=== PATIENT | female | born 1960 | race Hispanic/Latino ===

== ENCOUNTER 2022-03-27 19:32 | Emergency (ER) | payer OTHER ==
[~2022-03-27] VITALS: Ht 147.3 cm; Wt 59.0 kg
[~2022-03-27 19:32] MED LIST: CYCLOBENZAPRINE10 MG PO; DICLOFENAC POTA50 MG PO; DIOVAN HCT 1601 EAC1 PO; DIOVAN80 MG PO
[2022-03-27] MEDS ORDERED: HYDRALAZINE HCL 20 MG/ML VIAL IV STA (19:54)
[2022-03-27 20:02] LABS: BASOPHILS % 0.6 % (0.0-1.0); EOSINOPHILS # (AUTO) 0.2 (0.0-0.4); EOSINOPHILS % 2.2 % (0.0-6.0); HEMATOCRIT 39.3 % (34.2-44.1); HEMOGLOBIN 13.1 g/dL (12.0-16.0); LYMPHOCYTES # (AUTO) 2.2 (1.0-3.2); LYMPHOCYTES % 32.4 % (18.0-39.1); MEAN CORPUSCULAR HEMOGLOBIN 34.3 pg (28-32); MEAN CORPUSCULAR HGB CONC 33.3 g/dL (31-35); MEAN CORPUSCULAR VOLUME 102.9 fL (81-99); MONOCYTES # (AUTO) 0.5 (0.2-0.8); MONOCYTES % 7.4 % (4.4-11.3); NEUTROPHILS # (AUTO) 3.9 (2.1-6.9); NEUTROPHILS % 57.1 % (38.7-80.0); PLATELET COUNT 157 x10e3/uL (140-360); RED BLOOD COUNT 3.82 x10e6/uL (3.6-5.1); RED CELL DISTRIBUTION WIDTH 12.5 % (11.7-14.4)
[2022-03-27 20:23] LABS: ALBUMIN 4.1 g/dL (3.5-5.0); ALBUMIN/GLOBULIN RATIO 1.1 (0.8-2.0); ANION GAP 17.5 mmol/L (8-16); CALCIUM 9.7 mg/dL (8.4-10.2); CREATININE, SERUM 0.79 mg/dL (0.57-1.11); POTASSIUM 3.5 mmol/L (3.5-5.1)
[2022-03-27] MEDS ORDERED: Morphine 4mg INJECTION 4 MG/ML INJ IV ONE ×3 (21:30→23:45)
[2022-03-27] MEDS ORDERED: ONDANSETRON HCL INJ 2MG/ML 2ML 2 MG/ML VIAL IV STA ×2 (21:30→23:40)
[2022-03-27] MEDS ORDERED: ONDANSETRON HCL INJ 2MG/ML 2ML 2 MG/ML VIAL ONE ×2 (21:46→23:56)
[2022-03-27] MEDS ORDERED: Morphine 4mg INJECTION 4 MG/ML INJ ONE (21:46)
[2022-03-27] MEDS ORDERED: TIMOLOL MALEATE 0.5% OPTH DRP 5 ML BTL OS STA (23:33)
[2022-03-27] MEDS ORDERED: ACETAZOLAMIDE SODIUM 500 MG/VIAL IV ONE (23:45)
[2022-03-28] MEDS ORDERED: DORZOLAMIDE/TIMOLOL (OPTH SOL) 10 ML DRPETTE OP ONE ×3 (00:15→09:00)
[2022-03-28 01:03] VITALS: BP 139/73
[2022-03-28] MEDS ORDERED: ACETAZOLAMIDE250 MG PO ×2 (01:14→01:28)
[2022-03-28] MEDS ORDERED: ACETAMINOPHEN-1 EAC4 PO ×2 (01:14→01:28)
[2022-03-28] MEDS ORDERED: COSOPT EYE DROP10 ML OS ×2 (01:14→01:28)
== END 2022-03-28 01:33 | disposition home or self-care (01) ==
LOC: ER 19:42
DX: R51.9 Headache, unspecified (principal); H40.052 Ocular hypertension, left eye; H43.12 Vitreous hemorrhage, left eye; I10 Essential (primary) hypertension; Z87.19 Personal history of other diseases of the digestive system
CPT/HCPCS: 36415; 70450; 80053; 85025; 93005; 99284; J0360; J2270; J2405